=== PATIENT | female | born 1940 | race Caucasian/White ===

== ENCOUNTER → 2016-06-29 | Outpatient (CLI) | payer OTHER ==
--- NOTE | 2016-06-29 19:15 | DX ---
Four views lumbar spine Clinical indication: Chronic low back pain. Comparison: MRI of December 20, 2015. Findings: The grade 1 spondylolisthesis is stable between upright flexion and extension views. This takes into account some rotational variability between the 2 films. The grade 1 spondylolisthesis jocy ears slightly more exaggerated than the December 20, 2015 MRI. Prior dorsal laminectomy is unchanged. Estela re disk space narrowing is present at T11-T12 and L5-S1. Impression: Persistent grade 1 spondylolisthesis at L4-L5, slightly worse than 7 months prior, but n o significant difference between flexion and extension given mild rotational differences of the films .
--- NOTE | 2016-06-29 19:34 | DX ---
Four views of the cervical spine Clinical indication: Chronic neck pain. Comparison: January 21, 2003. Findings: There is normal cervical lordosis without evidence of anterolisthesis or retrolisthesis wi th flexion or extension. Degenerative disk disease is again present at C4-C5, C5-C6, C6-C7, and C7-T1 . Multilevel osteoarthritic changes of the facet joints are present. Similar findings were present on the prior examination from January 2003, but slightly less severe. Impression: Interval progression of multilevel degenerative disk disease as above.
== END ==
LOC: FIMAGING 16:23
PROVIDERS: ATTEND Neurological Surgery
DX: M50.321 Other cervical disc degeneration at C4-C5 level (principal); M46.92 Unspecified inflammatory spondylopathy, cervical region; M43.16 Spondylolisthesis, lumbar region; M48.04 Spinal stenosis, thoracic region; M48.07 Spinal stenosis, lumbosacral region

== ENCOUNTER → 2016-09-10 | Outpatient (CLI) | payer OTHER | LOC: FIMAGING 14:05 | DX: Z12.31 Encounter for screening mammogram for malignant neoplasm of breast (principal) | CPT/HCPCS: G0202 ==

== ENCOUNTER → 2016-09-23 | Outpatient (CLI) | payer OTHER | LOC: FIMAGING 08:56 | PROVIDERS: ATTEND Family Medicine | DX: Z13.820 Encounter for screening for osteoporosis (principal); M81.0 Age-related osteoporosis without current pathological fracture; E55.9 Vitamin D deficiency, unspecified; Z78.0 Asymptomatic menopausal state ==

== ENCOUNTER → 2017-01-10 | Outpatient (CLI) | payer OTHER | LOC: BHFA 13:15 | PROVIDERS: ATTEND Internal Medicine Cardiovascular Disease | DX: I25.10 Atherosclerotic heart disease of native coronary artery without angina pectoris (principal); I77.9 Disorder of arteries and arterioles, unspecified; I10 Essential (primary) hypertension; R06.09 Other forms of dyspnea ==

== ENCOUNTER → 2017-01-18 | Outpatient (CLI) | payer OTHER | LOC: BHFA 09:00 | PROVIDERS: ATTEND Internal Medicine Cardiovascular Disease | DX: I25.10 Atherosclerotic heart disease of native coronary artery without angina pectoris (principal) | CPT/HCPCS: 78452; 93017; A9500 ==

== ENCOUNTER 2017-01-21 08:32 | Observation (INO) | payer OTHER ==
[2017-01-21] MEDS ORDERED: FAMOTIDINE 20 MG TAB PO ONE (08:33)
[2017-01-21] MEDS ORDERED: ASPIRIN EC 325 MG TAB PO ONE (08:33)
[2017-01-21] MEDS ORDERED: DIAZEPAM 5 MG TAB PO ONE (08:33)
[2017-01-21] MEDS ORDERED: diphenhydrAMINE 25 MG CAP PO ONE (08:33)
[2017-01-21] MEDS ORDERED: NS 1,000 ML IV ONE (08:33)
--- NOTE | 2017-01-21 09:01 | CPEKG ---
Heart Rate: 55 RR Interval: 1091 P-R Interval: 172 QRSD Interval: 92 QT Interval: 408 QTC Interval: 391 P Horace: 69 QRS Horace: 58 T Wave Horace: 56 EKG Severity - NORMAL ECG - EKG Impression: SINUS RHYTHM Electronically Signed By: Christopher Ornelas 21-Jan-2017 20:29:30
[2017-01-21 09:25] LABS: % IMMATURE GRANULYOCYTES 0.2 % (0.0-1.1); ABSOLUTE IMMATURE GRANULOCYTES 0.01 10^3/uL (0.00-0.10); ADD DIFF? NO; ADD MORPH? NO; ADD SCAN? NO; ATYPICAL LYMPHOCYTE FLAG 20 (0-99); FRAGMENT RBC FLAG 0 (0-99); HEMOGLOBIN 13.3 g/dL (12.6-16.3); LEFT SHIFT FLG 0 (0-99); LIPEMIA HEMOLYSIS FLAG 90 (0-99); MEAN CELL HEMOGLOBIN CONCENTR. 34.1 g/dL (32.4-36.7); PLATELET CLUMPS FLAG 0 (0-99); PLATELET COUNT 181 10^3/uL (150-400); RED BLOOD CELL COUNT 4.15 10^6/uL (4.18-5.33); RED CELL DISTRIBUTION WIDTH 12.1 % (11.5-15.2)
[2017-01-21 09:34] LABS: PROTIME(PATIENT) 13.1 SEC (12.0-15.0)
[2017-01-21 09:50] LABS: ANION GAP 9 mEq/L (8-16); CALCIUM 9.1 mg/dL (8.5-10.4); CARBON DIOXIDE 25 mEq/l (22-31); CHLORIDE 107 mEq/L (97-110); CHOLESTEROL 136 mg/dL (140-220); CHOLESTEROL/HDL RATIO 2.19 RATIO (1.00-4.44); CREATININE 0.7 mg/dL (0.6-1.0); GLOMERULAR FILTRATION RATE > 60; GLUCOSE 84 mg/dL (70-100); HIGH DENSITY LIPOPROTEIN 62 mg/dL (40-85); LOW DENSITY LIPOPROTEIN 62 mg/dL (80-100); MAGNESIUM 1.9 mg/dL (1.6-2.3); NON-HIGH DENSITY LIPOPROTEIN 74 mg/dL (90-129); SODIUM 141 mEq/L (134-144); TRIGLYCERIDE 64 mg/dL (35-135); VERY LOW DENSITY LIPOPROTEINS 12 mg/dL (8-25)
[2017-01-21] MEDS ORDERED: IOPAMIDOL (ISOVUE-370) 150 ML BTL IV ONE (09:50)
[2017-01-21] MEDS ORDERED: LIDOCAINE 1% 300 MG/30 ML SDV ONE (09:50)
[2017-01-21] MEDS ORDERED: fentaNYL 100 MCG/2 ML INJ ONE (09:55)
[2017-01-21] MEDS ORDERED: MIDAZOLAM 2 MG/2 ML VIAL ONE (09:55)
--- NOTE | 2017-01-21 12:23 | CPIP ---
[f rep st] INVASIVE CARDIAC PROCEDURE DATE OF PROCEDURE: 01/21/2017 PROCEDURE: 1. Coronary angiography. 2. Left ventriculography. INDICATION: 1. Known coronary artery disease by coronary artery calcium score. 2. Class 2 angina. 3. Abnormal nuclear stress test with anterolateral ischemia. ACCESS: The patient was prepped and draped in sterile fashion. 1% lidocaine was used to anesthetiz e the right inguinal region. A 6-Citizen Of [place] introducer sheath was placed selectively into the right com mon femoral artery via modified Seldinger technique. CORONARY ANGIOGRAPHY: A 6-Citizen [place] JL4 was advanced to the left main coronary artery and images obtai jesus. The left main coronary artery bifurcated into an LAD and circumflex coronary arteries. The le ft main coronary artery appeared normal. The left anterior descending coronary artery gave rise to 3 prominent diagonal branches as well as several smaller diagonal branches. The left anterior desce nding coronary artery had mild diffuse disease throughout, and in the mid vessel there was a single discrete 10% to 20% stenosis present. The diagonal arteries were free of any significant disease. The circumflex coronary artery is a moderate-sized vessel. The circumflex coronary artery appeared normal. A 6-Citizen [place] JR4 was advanced to the right coronary artery and images obtained. The right co ronary artery was dominant. The right coronary artery appeared normal. LEFT VENTRICULOGRAPHY: A 6-Citizen [place] pigtail catheter was advanced in the left ventricle and images ob tained. Left ventricle was normal in size and normal systolic function. Estimated ejection fractio n of 65%. COMPLICATIONS: None. CONCLUSIONS: 1. Mild coronary artery disease without flow limitation. 2. Normal left ventricular size and systolic function. 3. Plan is for medical management. /[id number]/MODL
[2017-01-21] MEDS ORDERED: LORazepam 0.5 MG TAB PO PRN (13:47)
[2017-01-21 19:48] VITALS: RESP 16
[2017-01-21] MEDS: OMEGA-3 FATTY ACIDS 1,000 MG CAP PO SCH (20:29)
[2017-01-21] MEDS: CHOLECALCIFEROL VIT D3 1,000 UNITS TAB PO SCH (20:30)
[2017-01-21] MEDS ORDERED: NON-FORMULARY NEW DRUG (Atorvastatin Calcium [Lipitor 80 Mg] 80 MG) PO SCH (21:00)
[2017-01-21] MEDS ORDERED: ASPIRIN 81 MG CHEWABLE TAB PO SCH (21:00)
[2017-01-21] MEDS ORDERED: METOPROLOL SUCCINATE XR 25 MG TAB PO SCH (21:00)
[2017-01-21] MEDS ORDERED: LOSARTAN POTASSIUM 25 MG TAB PO SCH (21:00)
[2017-01-21] MEDS ORDERED: ATORVASTATIN CALCIUM 40 MG TAB PO SCH (21:00)
[2017-01-22 07:38] VITALS: BP 123/58; PULSE 55; TEMP 97.5; O2SAT 91
[2017-01-22] MEDS: CHOLECALCIFEROL VIT D3 1,000 UNITS TAB PO SCH (08:13)
[2017-01-22] MEDS: OMEGA-3 FATTY ACIDS 1,000 MG CAP PO SCH (08:13)
[2017-01-22] MEDS ORDERED: VENLAFAXINE XR 75 MG CAP PO SCH (09:00)
[2017-01-22] MEDS ORDERED: VITAMIN B COMPLEX 1 EA CAP/TAB PO SCH (09:00)
--- NOTE | 2017-01-22 14:23 | GDS ---
[f rep st] DISCHARGE SUMMARY DISCHARGE DIAGNOSES: 1. Coronary artery disease by left heart catheterization and positive calcium score, status post le ft heart catheterization after an abnormal nuclear stress test. 2. Minimal coronary artery disease on left heart catheterization. 3. History of hypertension. 4. History of dyslipidemia. 5. History of increased shortness of breath. PROCEDURES: 01/21/2017: Left heart catheterization which showed mild coronary artery disease witho ut flow limitation and normal LV size and function. BRIEF HISTORY: Please see dictated H and P from Dr. Day for complete details. In brief, the patie nt is a 76-year-old female with coronary artery disease and known positive calcium score. She also has hypertension and dyslipidemia. She had a recent dyspnea for which a nuclear stress test was obt ained that showed an 8% defect on stress images in the anterior, anterolateral mas. Options were reviewed and patient was referred for left heart catheterization for further evaluation. This was d one on 01/21/2017 and no obstructive disease was identified. PHYSICAL EXAMINATION: On day of discharge, the patient reports feeling well. Groin site appears st able. BP on day of discharge 123/58, heart rate 55, respirations 16, O2 saturation 91% on room air. GENERAL: She is a pleasant female in no apparent distress. EYES: FIORDALIZA. HEART: Regular rate and rhythm. Right groin site stable. LABORATORY DATA: CBC with WBC 4.33, hemoglobin 13.3, hematocrit 39, platelet count of 181. BMP with sodium 141, potassium 4, chloride 107, CO2 25, BUN 18, creatinine 0.7, total cholesterol 13 6, triglycerides 64, LDL 62, HDL 62. RESULTS PENDING: None. DIET: Per previous. ACTIVITY: Groin precautions. DISCHARGE MEDICATIONS: Please see med reconciliation. She is being continued on her home vitamin B complex, [place]-3 fatty acids, losartan, cholecalciferol, lorazepam, Effexor, atorvastatin, aspirin. Her metoprolol succinate has been discontinued. FOLLOWUP INSTRUCTIONS: 1. Groin precautions. 2. Follow up with Dr. Day as scheduled. /[id number]/MODL
== END 2017-01-22 09:55 | disposition home or self-care (01) ==
LOC: FCATH 08:32 → F2W 11:23
PROVIDERS: ADMIT Internal Medicine Cardiovascular Disease; ATTEND Internal Medicine Cardiovascular Disease
PROC: 4A023N7 Measurement of Cardiac Sampling and Pressure, Left Heart, Percutaneous Approach (ICD-10-PCS; principal; 2017-01-21)
PROC: B2151ZZ Fluoroscopy of Left Heart using Low Osmolar Contrast (ICD-10-PCS; principal; 2017-01-21)
PROC: B2111ZZ Fluoroscopy of Multiple Coronary Arteries using Low Osmolar Contrast (ICD-10-PCS; principal; 2017-01-21)
DX: I25.119 Atherosclerotic heart disease of native coronary artery with unspecified angina pectoris (principal); I48.91 Unspecified atrial fibrillation; I48.92 Unspecified atrial flutter; I10 Essential (primary) hypertension; E78.5 Hyperlipidemia, unspecified; J44.9 Chronic obstructive pulmonary disease, unspecified
CPT/HCPCS: 93005; 93458; C1760; J1644; J2250; J3010; Q9967

== ENCOUNTER → 2017-01-31 | Outpatient (CLI) | payer OTHER | LOC: FIMAGING 18:20 | PROVIDERS: ATTEND Internal Medicine Cardiovascular Disease | DX: R06.02 Shortness of breath (principal); R60.9 Edema, unspecified ==

== ENCOUNTER → 2017-06-30 | Outpatient (CLI) | payer OTHER | LOC: BHFA 11:00 | PROVIDERS: ATTEND Internal Medicine Cardiovascular Disease | DX: R06.09 Other forms of dyspnea (principal) | CPT/HCPCS: 94060; 94070; 94726; 94729; J7674 ==

== ENCOUNTER → 2017-06-30 | Outpatient (CLI) | payer OTHER | LOC: FIMAGING 13:39 | PROVIDERS: ATTEND Family Medicine | DX: R06.02 Shortness of breath (principal) | CPT/HCPCS: 71046; 94060; 94070; 94726; 94729; J7674 ==

== ENCOUNTER 2017-09-04 07:32 | Observation (INO) | payer OTHER ==
--- NOTE | 2017-09-04 07:40 | EDPHY ---
H & P Stated Complaint: cp/neck pain - Personal History Current Tetanus Diphtheria and Acellular Pertussis (TDAP): Yes - Medical/Surgical History Hx Asthma: No Hx Chronic Respiratory Disease: No Hx Diabetes: No Hx Cardiac Disease: No Hx Renal Disease: No Hx Cirrhosis: No Hx Alcoholism: No Hx HIV/AIDS: No Hx Splenectomy or Spleen Trauma: No Other PMH: htn, hyperlipidemia, lumbar laminectomy,. - Social History Smoking Status: Never smoked Time Seen by Provider: 09/04/17 07:40 Constitutional: Initial Vital Signs Temperature (C) 36.4 C 09/04/17 07:36 Heart Rate 66 09/04/17 07:36 Respiratory Rate 17 09/04/17 07:36 Blood Pressure 140/80 H 09/04/17 07:36 O2 Sat (%) 97 09/04/17 07:36 O2 Delivery Mode Room Air Allergies/Adverse Reactions: Sulfa (Sulfonamide Antibiotics) Allergy (Unknown, Verified 09/04/17 07:33) Home Medications: Medication Instructions Recorded Aspirin [Aspirin 81mg (*)] 81 mg PO DAILY 01/21/17 Cholecalciferol Vit D3 [Vitamin D3 1,000 units PO BID 01/21/17 (*)] Herbals/Supplements -Info Only 1 ea PO DAILY 01/21/17 LORazepam [Ativan (*)] 0.25 - 0.5 mg PO DAILY PRN 01/21/17 Losartan Potassium [Cozaar 25 mg 25 mg PO HS 01/21/17 (*)] [place]-3 Fatty Acids [Fish Oil 1000 1,000 mg PO BID 01/21/17 mg (*)] Venlafaxine Xr [Effexor Xr 75MG 75 mg PO HS 01/21/17 (*)] Vitamin B Complex [B Complex] 1 each PO DAILY 01/21/17 Atorvastatin Calcium [Lipitor 40 40 mg PO HS 09/04/17 mg (*)] Latanoprost 0.005% [Xalatan 0.005% 1 drops EACHEYE HS 09/04/17 (*)] Nitroglycerin [Nitrostat 0.4 mg 0.4 mg SL Q5M PRN 09/04/17 (*)] Medical Decision Making - Diagnostics Imaging: I viewed and interpreted images myself - Diagnostics Imaging Results: Imaging Impressions Chest X-Ray 09/04/17 07:48 Impression: No evidence for acute cardiopulmonary abnormality. ED Course/Re-evaluation: CHIEF COMPLAINT: Chest pain HISTORY OF PRESENT ILLNESS: The patient is a 76 y/o female complaining of chest pain upon waking this morning, at 06:00, 1.5 hours ago. Her medical history includes known coronary artery disease on EBCT, abnormal stress test, and catheterization in Jan 2017 showed mild diffuse disease of the LAD with a discrete mid-vessel 10-20% stenosis. Recommendation was for medical management. She describes her pain as "bad indigestion" that extends across her entire chest , neck, and jaw. She has never had symptoms like this previously. She reports symptoms improved with SL nitro at home. She denies associated dyspnea, nausea, vomiting, diaphoresis, recent illness, or recent trauma. REVIEW OF SYSTEMS: A 10 point review of systems was performed and is negative with the exception of the elements mentioned in the history of present illness. PHYSICAL EXAM: HR, BP, O2 Sat, RR. Temp noted General Appearance: Alert, well hydrated, appropriate, and non-toxic appearing. Head: Atraumatic without scalp tenderness or obvious injury Eyes: Pupils equal, round, reactive to light and accommodation, EOMI, no trauma , no injection. Ears: Clear bilaterally, no perforation, normal landmarks Nose: Atraumatic, no rhinorrhea, clear. Throat: There is no erythema or exudates, no lesions, normal tonsils, mucus membranes moist. Neck: Supple Respiratory: No retractions, no distress, no wheezes, and no accessory muscle use. Lungs are clear to auscultation bilaterally. Cardiovascular: Regular rate and rhythm, no murmurs, rubs, or gallops. Good capillary refill all extremities. Gastrointestinal: Abdomen is soft, nontender, non-distended, no masses, no rebound, no guarding, no peritoneal signs. Musculoskeletal: Normal active ROM of all extremities, atraumatic. Neurological: Alert, appropriate, and interactive. The patient has non-focal cranial nerves, motor, sensory, and cerebellar exam. Skin: No rashes, good turgor, no nodules on palpation. Past medical history: CAD, 10-20% stenosis LAD; hypertension; hyperlipidemia Past surgical history: Lumbar stenosis Family history: Noncontributory Social history: Lives in [place]. Retired. Single. Nonsmoker. DIAGNOSTICS/PROCEDURES/CRITICAL CARE TIME: The 12 lead EKG was interpreted by myself. Sinus mechanism. Flipped T wave in V3 , flattened T wave in V4 new from prior EKG. See hard copy and/or "tracemaster" electronic copy for interpretation. Chest x-ray: nothing acute DIFFERENTIAL DIAGNOSIS: The differential diagnosis for the patient's chest pain included but was not limited to myocardial ischemia, pulmonary embolus, chest wall pain, pleural inflammation, and pulmonary infectious causes. MEDICAL DECISION MAKING: This is a 76 y/o female with known mild CAD seen on recent catheterization who presents with a 1.5-hour history of diffuse chest pain radiating to her neck and jaw. Exam unremarkable. Plan for standard cardiac work up including IV, labs , EKG, and 324mg PO aspirin. Moderate suspicion for cardiac etiology given history and changes in T waves on EKG today and I've recommended admission due to this. Chest x-ray unremarkable. Labs unremarkable. Troponin and BNP pending. Spoke with hospitalist service. Dr. Roblero accepts admission. 0826: Patient continues to be in pain. Nitro ordered. 0842: Reassessed patient and discussed work up and recommendation for admission. Troponin negative, BNP minimally elevated. She is continuing to have pain and draws a [place] around her chest and a line across her throat to describe it. Nitro currently being administered. (Paulie Nixon) 1500: Patient is signed out to me at change of shift by Dr. Nixon. The patient is awaiting placement and further evaluation by Cardiology. I personally went evaluated the patient. She has no complaints at this time. No chest pain. She appears well. I reviewed the notes from Dr. Roblero and Dr. Pillai. 15 30: I paged Dr. Roblero for an update. Dr. Roblero came to the emergency department. He reviewed the images with the radiologist. Dr. Roblero stated he would discharge the patient from the emergency department. (Josiane Urban) - Data Points Laboratory Results: Laboratory Results 09/04/17 08:00 09/04/17 08:00 09/04/17 09/04/17 08:00 08:00 WBC 5.08 10^3/uL 10^3/uL (3.80-9.50) RBC 4.41 10^6/uL 10^6/uL (4.18-5.33) Hgb 14.1 g/dL g/dL (12.6-16.3) Hct 41.8 % % (38.0-47.0) MCV 94.8 fL fL (81.5-99.8) MCH 32.0 pg pg (27.9-34.1) MCHC 33.7 g/dL g/dL (32.4-36.7) RDW 12.5 % % (11.5-15.2) Plt Count 180 10^3/uL 10^3/uL (150-400) MPV 10.0 fL fL (8.7-11.7) Neut % (Auto) 64.3 % % (39.3-74.2) Lymph % (Auto) 22.0 % % (15.0-45.0) [place] % (Auto) 9.6 % % (4.5-13.0) Eos % (Auto) 3.3 % % (0.6-7.6) Baso % (Auto) 0.6 % % (0.3-1.7) Nucleat RBC Rel Count 0.0 % % (0.0-0.2) Absolute Neuts (auto) 3.26 10^3/uL 10^3/uL (1.70-6.50) Absolute Lymphs (auto) 1.12 10^3/uL 10^3/uL (1.00-3.00) Absolute Monos (auto) 0.49 10^3/uL 10^3/uL (0.30-0.80) Absolute Eos (auto) 0.17 10^3/uL 10^3/uL (0.03-0.40) Absolute Basos (auto) 0.03 10^3/uL 10^3/uL (0.02-0.10) Absolute Nucleated RBC 0.00 10^3/uL 10^3/uL (0-0.01) Immature Gran % 0.2 % % (0.0-1.1) Immature Gran # 0.01 10^3/uL 10^3/uL (0.00-0.10) Sodium 143 mEq/L mEq/L (135-145) Potassium 3.9 mEq/L mEq/L (3.5-5.2) Chloride 107 mEq/L mEq/L (97-110) Carbon Dioxide 27 mEq/l mEq/l (22-31) Anion Gap 9 mEq/L mEq/L (8-16) BUN 22 mg/dL mg/dL (7-23) Creatinine 0.7 mg/dL mg/dL (0.6-1.0) Estimated GFR > 60 Glucose 81 mg/dL mg/dL (70-100) Calcium 9.0 mg/dL mg/dL (8.5-10.4) Troponin I < 0.012 ng/mL ng/mL (0.000-0.034) NT-Pro-B Natriuret Pep 256 pg/mL H pg/mL (0-125) Medications Given: Discontinued Medications Aspirin (Aspirin) 324 mg PO EDNOW ONE Stop: 09/04/17 07:49 Last Admin: 09/04/17 07:58 Dose: 162 mg Nitroglycerin/Dextrose (Nitroglycerin 200 Mcg/Ml (Premix)) 250 mls @ 0 mls/hr IV CONT ONE; Titrate PRN Reason: Protocol Stop: 09/04/17 08:26 Last Admin: 09/04/17 08:41 Dose: 250 mls Ibuprofen (Motrin) 600 mg PO EDNOW ONE Stop: 09/04/17 13:25 Last Admin: 09/04/17 13:29 Dose: 600 mg Metoprolol Tartrate (Lopressor Injection) 5 mg IVP Q5M [facility] Stop: 09/04/17 12:11 Last Admin: 09/04/17 12:12 Dose: 5 mg Departure - Departure Disposition: Home, Routine, Self-Care Clinical Impression: Chest pain Qualifiers: Chest pain type: other chest pain Qualified Code(s): R07.89 - Other chest pain Condition: Fair Report Scribed for: Paulie Nixon Report Scribed by: Diya Bergman Date of Report: 09/04/17 Time of Report: 08:24
[2017-09-04] MEDS ORDERED: ASPIRIN 81 MG CHEWABLE TAB PO ONE (07:48)
--- NOTE | 2017-09-04 07:48 | CPEKG ---
Heart Rate: 64 RR Interval: 938 P-R Interval: 168 QRSD Interval: 96 QT Interval: 404 QTC Interval: 417 P Brodnax: 52 QRS [place]ax: 54 T Wave [place]ax: 48 EKG Severity - BORDERLINE ECG - EKG Impression: SINUS RHYTHM EKG Impression: BORDERLINE T ABNORMALITIES, ANTERIOR LEADS Electronically Signed By: Paulie Nixon 04-Sep-2017 12:17:24
[2017-09-04 08:10] LABS: PLATELET COUNT 180 10^3/uL (150-400)
[2017-09-04] MEDS ORDERED: NITROGLYCERIN/DEXTROSE 250 ML IV ONE (08:25)
[2017-09-04 08:44] VITALS: RESP 16
[2017-09-04] MEDS ORDERED: LORazepam 0.5 MG TAB PO PRN (11:38)
[2017-09-04] MEDS ORDERED: NITROGLYCERIN 0.4 MG BTL SL PRN (11:38)
[2017-09-04] MEDS ORDERED: ONDANSETRON 4 MG/2 ML VIAL IVP PRN (11:39)
[2017-09-04] MEDS ORDERED: ONDANSETRON DISINTEGRATING 4 MG TAB PO PRN (11:39)
[2017-09-04] MEDS ORDERED: METOPROLOL TARTRATE 5 MG/5 ML INJ IVP SCH (12:00)
--- NOTE | 2017-09-04 12:02 | PDCARCONS ---
Cardiology Consult Reason for Consult: Chest pain Chief Complaint: Chest pain Requesting Physician: Osbaldo History of Present Illness: 76 year old female no history of coronary disease presents with discomfort in the chest. She awoke this morning describing which she thought was indigestion. There was a swirling of pressure in her chest. There was some radiation up into her throat. It did not go into her jaw. There was nausea without vomiting. She has felt poorly over 48 hours with poor oral intake, diarrhea. She feels bloated. She came to the emergency department to be evaluated. Initial troponin is negative. Initial EKG is nonspecific. Nitroglycerin is causing significant headache without complete relief. On my arrival she is having 2/10 vague discomfort. Patient had extensive cardiac workup earlier this year. This included a completely normal coronary angiogram, normal left ventriculogram this past year as well as one remotely. She had abnormal stress test which began this process for exertional shortness of breath. Cardiac risk include hypertension, hyperlipidemia She is active without limitations. Recent medical history is negative for fever chills. She had no unusual p.o. intake recently. History Information - Allergies/Home Medication List Allergies/Adverse Reactions: Sulfa (Sulfonamide Antibiotics) Allergy (Unknown, Verified 09/04/17 07:33) Home Medications: Aspirin [Aspirin 81mg (*)] 81 mg PO DAILY 01/21/17 [Last Taken Unknown] Cholecalciferol Vit D3 [Vitamin D3 (*)] 1,000 units PO BID 01/21/17 [Last Taken 01/19/17 21:00] Herbals/Supplements -Info Only 1 ea PO DAILY 01/21/17 [Last Taken Unknown] LORazepam [Ativan (*)] 0.25 - 0.5 mg PO DAILY PRN 01/21/17 [Last Taken Unknown] Losartan Potassium [Cozaar 25 mg (*)] 25 mg PO HS 01/21/17 [Last Taken 09/03/17] [place]-3 Fatty Acids [Fish Oil 1000 mg (*)] 1,000 mg PO BID 01/21/17 [Last Taken 01/19/17 21:00] Venlafaxine Xr [Effexor Xr 75MG (*)] 75 mg PO HS 01/21/17 [Last Taken 01/21/17] Vitamin B Complex [B Complex] 1 each PO DAILY 01/21/17 [Last Taken 01/19/17] Atorvastatin Calcium [Lipitor 40 mg (*)] 40 mg PO HS 09/04/17 [Last Taken Unknown] Latanoprost 0.005% [Xalatan 0.005% (*)] 1 drops EACHEYE HS 09/04/17 [Last Taken Unknown] Nitroglycerin [Nitrostat 0.4 mg (*)] 0.4 mg SL Q5M PRN 09/04/17 [Last Taken ] I have personally reviewed and updated: family history, medical history, social history, surgical history Past Medical History: - Past Medical History hypertension - Surgical History Reports: no pertinent surgical hx - Family History Positive for: non-pertinent - Social History Smoking Status: Never smoked Cardiac History - Cardiac History Cardiac Risk Factors: hypertension (>140/90) Timing/Duration: Hours Severity: mild Severity Scale: 4 Location: epigastric Activities at Onset: rest Modifying Factors: improves with: antacids, nitroglycerin Associated Symptoms: loss of appetite, malaise, nausea/vomiting, weakness Physical Exam Physical Exam: Temp Pulse Resp BP Pulse Ox 36.4 C 76 16 124/64 H 96 09/04/17 07:36 09/04/17 11:28 09/04/17 11:28 09/04/17 11:28 09/04/17 11:28 Constitutional: no apparent distress Eyes: PERRL, anicteric sclera, EOMI Ears, Nose, Mouth, Throat: moist mucous membranes Cardiovascular: regular rate and rhythym, no murmur, rub, or gallop, No systolic murmur, No JVD Peripheral Pulses: 1+: carotid (R), carotid (L), femoral (R), femoral (L), dorsalis-pedis (R), dorsalis-pedis (L) Respiratory: no respiratory distress, no rales or rhonchi, clear to auscultation Gastrointestinal: normoactive bowel sounds, distension, No tenderness, No guarding, No rebound Genitourinary: no bladder fullness Skin: warm, normal color Musculoskeletal: full muscle strength, no muscle tenderness Neurologic: AAOx3, No facial droop Psychiatric: interacting appropriately Lymph, Heme, Immunologic: no cervical LAD, no supraclavicular LAD Lab and Imaging 09/04/17 08:00 09/04/17 08:00 WBC 5.08 10^3/uL (3.80-9.50) 09/04/17 08:00 RBC 4.41 10^6/uL (4.18-5.33) 09/04/17 08:00 Hgb 14.1 g/dL (12.6-16.3) 09/04/17 08:00 Hct 41.8 % (38.0-47.0) 09/04/17 08:00 MCV 94.8 fL (81.5-99.8) 09/04/17 08:00 MCH 32.0 pg (27.9-34.1) 09/04/17 08:00 MCHC 33.7 g/dL (32.4-36.7) 09/04/17 08:00 RDW 12.5 % (11.5-15.2) 09/04/17 08:00 Plt Count 180 10^3/uL (150-400) 09/04/17 08:00 MPV 10.0 fL (8.7-11.7) 09/04/17 08:00 Neut % (Auto) 64.3 % (39.3-74.2) 09/04/17 08:00 Lymph % (Auto) 22.0 % (15.0-45.0) 09/04/17 08:00 [place] % (Auto) 9.6 % (4.5-13.0) 09/04/17 08:00 Eos % (Auto) 3.3 % (0.6-7.6) 09/04/17 08:00 Baso % (Auto) 0.6 % (0.3-1.7) 09/04/17 08:00 Nucleat RBC Rel Count 0.0 % (0.0-0.2) 09/04/17 08:00 Absolute Neuts (auto) 3.26 10^3/uL (1.70-6.50) 09/04/17 08:00 Absolute Lymphs (auto) 1.12 10^3/uL (1.00-3.00) 09/04/17 08:00 Absolute Monos (auto) 0.49 10^3/uL (0.30-0.80) 09/04/17 08:00 Absolute Eos (auto) 0.17 10^3/uL (0.03-0.40) 09/04/17 08:00 Absolute Basos (auto) 0.03 10^3/uL (0.02-0.10) 09/04/17 08:00 Absolute Nucleated RBC 0.00 10^3/uL (0-0.01) 09/04/17 08:00 Immature Gran % 0.2 % (0.0-1.1) 09/04/17 08:00 Immature Gran # 0.01 10^3/uL (0.00-0.10) 09/04/17 08:00 Sodium 143 mEq/L (135-145) 09/04/17 08:00 Potassium 3.9 mEq/L (3.5-5.2) 09/04/17 08:00 Chloride 107 mEq/L (97-110) 09/04/17 08:00 Carbon Dioxide 27 mEq/l (22-31) 09/04/17 08:00 Anion Gap 9 mEq/L (8-16) 09/04/17 08:00 BUN 22 mg/dL (7-23) 09/04/17 08:00 Creatinine 0.7 mg/dL (0.6-1.0) 09/04/17 08:00 Estimated GFR > 60 09/04/17 08:00 Glucose 81 mg/dL (70-100) 09/04/17 08:00 Calcium 9.0 mg/dL (8.5-10.4) 09/04/17 08:00 Troponin I < 0.012 ng/mL (0.000-0.034) 09/04/17 08:00 NT-Pro-B Natriuret Pep 256 pg/mL (0-125) H 09/04/17 08:00 Visualized and Interpreted imaging results: Yes Interpretation: 1. Coronary angiogram from this past year revealed angiographically normal coronaries with normal LV function. 2. Coronary angiogram from 2009 unchanged. Visualized and Interpreted EKG results: Yes EKG additional interpertation: EKG showed sinus rhythm with nonspecific soft anterior T-wave inversions. This is unchanged from previous EKGs. A/P Assessment: 76-year-old female with atypical chest pain. This is associated with a stable EKG, negative initial troponin. This is in the setting of a normal coronary angiogram in the last 6 months associated with a previous normal coronary angiogram. I do not think this represents acute coronary syndrome. Clinical history most consistent with GI etiology with a day of diarrhea, loss of appetite, significant bloating with nausea and symptoms most consistent with esophageal spasm. Recommend repeat 2nd troponin 4 hours after the 1st. If this is negative I think discharge from the hospital could be performed safely. CT angiogram was discussed to re-evaluate the proximal coronary vessels with recent diagnostic angiogram to exclude complications. Continue current medications for blood pressure. Clinical follow-up Plan: Discontinue nitrates. Repeat troponin. CT scan consideration. Clinical follow-up. Follow-up Dr. Gregoria Day 7-10 days post discharge from the emergency department. Past Medical History PMH: - Personal History Current Tetanus Diphtheria and Acellular Pertussis (TDAP): Yes - Medical/Surgical History Hx Asthma: No Hx Chronic Respiratory Disease: No Hx Cardiac Disease: No Hx Diabetes: No Hx Renal Disease: No Hx Alcoholism: No Hx Cirrhosis: No Hx HIV/AIDS: No Hx Splenectomy or Spleen Trauma: No Other PMH: htn, hyperlipidemia, lumbar laminectomy,. - Social History Smoking Status: Never smoked Additional Social History: Review of Systems Review of Systems: - Review of Systems Constitutional: malaise. denies: chills, fever, weight loss EENTM: no symptoms reported Respiratory: no symptoms reported Cardiac: no symptoms reported Gastrointestinal/Abdominal: abdominal distention, diarrhea, nausea Genitourinary: no symptoms Musculoskelatal: no symptoms Skin: no symptoms Neurological: no symptoms Hematologic/Lymphatic: no symptoms reported Immunologic/allergic: no symptoms reported
[2017-09-04] MEDS ORDERED: METOPROLOL TARTRATE 5 MG/5 ML INJ ONE (12:03)
[2017-09-04] MEDS ORDERED: IOPAMIDOL (ISOVUE-370) 150 ML BTL IV ONE (12:12)
--- NOTE | 2017-09-04 12:12 | GHP ---
[f rep st] HISTORY AND PHYSICAL DATE OF ADMISSION: 09/04/2017 SUBJECTIVE: Ms. Shantell gannon is a pleasant 76-year-old female history of known non flow limiting co ronary disease who presented to the emergency department with chest pain. She was woken from sleep w ith pain in her chest, radiated to her jaw. It responded to nitroglycerin. She has not had fever, c hills, cough, sputum. She does have a bit of nausea and some diarrhea. REVIEW OF SYSTEMS: Complete 10-point review of systems conducted, negative except as noted in the HP I. PAST MEDICAL HISTORY: 1. Mild coronary disease. 2. Depression. 3. Hypertension. 4. Glaucoma. ALLERGIES: Sulfa. HOME MEDICATIONS: Aspirin, atorvastatin, vitamin D, Latanoprost eyedrops, p.r.n. lorazepam, losartan , p.r.n. nitroglycerin, fish oil, venlafaxine. SOCIAL HISTORY: No tobacco, no alcohol. Lives in [facility]. FAMILY HISTORY: Reviewed unremarkable. PHYSICAL EXAMINATION: VITAL SIGNS: Temp 36.4 blood pressure 140/80, pulse 66, breathing 17 times a minute, 97% on room air. GENERAL: In no acute distress. HEENT: Sclerae anicteric. Oropharynx carmella ar. Mucous membranes moist. NECK: Supple without lymphadenopathy or JVD. LUNGS: Clear to auscult ation bilaterally. HEART: S1, S2. Cap without murmurs. ABDOMEN: Soft, nontender, nondistended. LOWER EXTREMITIES: No edema, calves nontender. SKING: Without rash. NEUROLOGIC: Nonfocal. LABS: Showed a chem 7 normal. BNP is slightly elevated . Troponin less than 0.012. CBC is normal. Chest x-ray interpreted by me shows no acute cardiopulmonary disease. EKG is interpreted by me, shows sinus at 64 with normal axis and intervals. There is a T-wave inversion in lead V3 and flat T-wave in V4. When compared with January of 2017 the T-wave inversion in V3 is new and there is a flat T in V4. Discussed case Dr. Paulie Nixon as well as Dr. Benito Pillai. ASSESSMENT AND PLAN: This is a 76-year-old female with known coronary disease and chest pain. 1. Chest pain. It is concerning for possible angina, although esophageal process cannot be ruled ou t. The patient will repeat a troponin now and undergo CTA coronary. If that is unchanged, she can b e discharged home. 2. Hypertension. Continue her medicines. 3. Glaucoma. Continue her on eyedrops. 4. Depression. Continue venlafaxine. 5. Disposition. Observation status, may be candidate for discharge later on this afternoon. /[id number]/MODL
[2017-09-04] MEDS ORDERED: IBUPROFEN 600 MG TAB PO ONE ×2 (13:24→13:25)
[2017-09-04 16:29] VITALS: BP 167/79; PULSE 70; TEMP 98.1; O2SAT 97
--- NOTE | 2017-09-04 16:38 | GDS ---
[f rep st] DISCHARGE SUMMARY DISCHARGE DIAGNOSES: 1. Chest pain. 2. Known coronary artery disease. Please see admission history and physical by Dr. Edmund Roblero. The patient presented with chest pa in. She had anterior EKG changes. She had known 10%, 20% LAD lesion. She had 2 negative troponins, resolution of her symptoms with nitroglycerin. She was seen by Cardiology, who recommended a CTA, w [facility] showed progression of her LAD disease with 50% stenosis. This was reviewed with sahil Coreas felt discharge home with outpatient followup was appropriate. Notably, she takes an aspirin. /[id number]/MODL
[2017-09-04] MEDS ORDERED: ATORVASTATIN CALCIUM 40 MG TAB PO SCH (21:00)
[2017-09-04] MEDS ORDERED: LOSARTAN POTASSIUM 25 MG TAB PO SCH (21:00)
[2017-09-04] MEDS ORDERED: OMEGA-3 FATTY ACIDS 1,000 MG CAP PO SCH (21:00)
[2017-09-04] MEDS ORDERED: LATANOPROST 0.005% 2.5 ML OPHT DROPS EACHEYE SCH (21:00)
[2017-09-04] MEDS ORDERED: VENLAFAXINE XR 75 MG CAP PO SCH (21:00)
[2017-09-04] MEDS ORDERED: CHOLECALCIFEROL VIT D3 1,000 UNITS TAB PO SCH (21:00)
[2017-09-05] MEDS ORDERED: VITAMIN B COMPLEX 1 EA CAP/TAB PO SCH (09:00)
[2017-09-05] MEDS ORDERED: Herbals/Supplements -Info Only PO SCH (09:00)
[2017-09-05] MEDS ORDERED: ASPIRIN 81 MG CHEWABLE TAB PO SCH (09:00)
== END 2017-09-04 14:31 | disposition home or self-care (01) ==
LOC: F2W 14:24
PROVIDERS: ADMIT Internal Medicine; ATTEND Internal Medicine
DX: R07.9 Chest pain, unspecified (principal); I25.10 Atherosclerotic heart disease of native coronary artery without angina pectoris; R94.39 Abnormal result of other cardiovascular function study; I10 Essential (primary) hypertension; E78.5 Hyperlipidemia, unspecified; F32.9 Major depressive disorder, single episode, unspecified; H40.9 Unspecified glaucoma; Z79.82 Long term (current) use of aspirin; Z88.2 Allergy status to sulfonamides
CPT/HCPCS: 71046; 75574; 93005; G0378; Q9967; 96374

== ENCOUNTER → 2017-11-26 | Outpatient (CLI) | payer OTHER | LOC: FIMAGING 14:28 | PROVIDERS: ATTEND Family Medicine | DX: Z12.31 Encounter for screening mammogram for malignant neoplasm of breast (principal) ==

== ENCOUNTER → 2018-07-11 | Outpatient (CLI) | payer OTHER | LOC: FIMAGING 13:47 | PROVIDERS: ATTEND Family Medicine | DX: R91.1 Solitary pulmonary nodule (principal); J43.9 Emphysema, unspecified; I25.10 Atherosclerotic heart disease of native coronary artery without angina pectoris ==

== ENCOUNTER → 2018-11-27 | Outpatient (CLI) | payer OTHER, MEDICARE | LOC: FIMAGING 14:26 ==